=== PATIENT | female | born 1990 | race African-American/Black ===

== ENCOUNTER 2019-06-20 11:56 | Emergency (ER) | payer SELFPAY ==
--- NOTE | 2019-06-20 12:00 | NUR ---
Friend present trying to translate for ER, weight and height not known by pt. Reports via translation no officce visit has had translation for her to know. Estimated these. Pt arrived to available room ED 3 which has no weight bed. Pt arrivd 1156 via [facility]. NKDA. Prior 8 yrs ago pt reports via translation "when I was due on a 28 and delivered on a 16." Pt did have an approx 38 week 3 day last delivery live . This is pt's 2nd delivery. Dr Henning asks patient be prepared for pelvic exam.
[2019-06-20] MEDS: ONDANSETRON 4 MG/2 ML (SDV) Z0FRAN ONE (12:15)
--- NOTE | 2019-06-20 12:15 | NUR ---
Pt reports return of nausea [address] ordered medication. Zofran 4 mg SIVP given per eMAR.
--- NOTE | 2019-06-20 12:22 | NUR ---
Pt had pelvic exam pe Dr Henning. reports cervix is closed. Pt seems to describe intermittant pain low abd and reports discomforts with exam.
--- NOTE | 2019-06-20 12:27 | NUR ---
Dr Henning reports he spoke with Dr Beckman and has accepted patient transfer to [place] [facility] to Labor and Delivery for further exam and monitoring.
--- NOTE | 2019-06-20 12:30 | NUR ---
Call report to Angela PENDLETON at the Nursery ext. as the Labor and Delivery ext. no answer. decorating supervisor Vaishnavi also notified of the patient being sent to [place] via EMS to OB Dept direct admit to L&D. No capability to do monitoring. FHT 146.
--- NOTE | 2019-06-20 12:45 | ED Abdominal Pain ---
General Chief Complaint: DIRECTOR OF PLACEMENT Stated Complaint: pelvic pain, blurred vision Source of Information: Patient, Sales Enablement Specialist History of Present Illness Date Seen by Provider: Jun 20, 2019 Time Seen by Provider: 12:15 Initial Comments Patient is a 28-year-old Chilean-speaking only G2, P1 38 week gestation female arriving by EMS who presents with diffuse suprapubic pain and pelvic cramping. Symptom onset was several hours prior to ED arrival. Patient reports pressure pain-like sensation that is moderate, it waxes and wanes. Patient does not feel the urge to bear down. She reports clear fluid leakage but denies gashing or vaginal bleeding. No dysuria, fever or localized flank pain Patient also reports nausea and blurring of vision and dizziness. Patient denies headache. Patient is mildly hypertensive, 120s /70s. Patient did have an in home social staff worker/installer technician visit this morning who who contacted Dr. Beckman, the patient's DIRECTOR OF PLACEMENT. Dr. Beckman requested that the patient be brought directly to [facility]. EMS was contacted and the patient was brought to the ED. Patient was disrobed and placed in a gown upon entering the emergency department. heart turns performed which confirm a viable fetus with a heart rate in the 140s. Pelvic exam was performed. Cervix was effaced but did not appear to be dilated. There is no bloody show or fluid leakage. Patient did appear to have vaginitis with yeast infection Abdomen was minimally tender. Dr. Beckman human resources professional for OB requested patient be brought to the L&D at [facility] into treat signs of preeclampsia if present. No labs were performed as not to present to the [facility]. EMS was contacted for transfer for presumed labor with possible preeclampsia and will be transferred to the [facility] L&D department. History is obtained via tobacco packing machine operator. Timing/Duration: 1-3 Hours Severity/Quality: Moderate, Cramping Location: Suprapubic Radiation: No Radiation Activities at Onset: Rest Modifying Factors: Worsens With Urinating Associated Symptoms: Back Pain; No Fever/Chills; Nausea/Vomiting Allergies and Home Medications Patient Home Medication List Home Medication List Reviewed: Yes Review of Systems Review of Systems Constitutional: see HPI EENTM: See HPI Respiratory: See HPI Cardiovascular: See HPI Gastrointestinal: See HPI Genitourinary: See HPI Musculoskeletal: see HPI Skin: see HPI Psychiatric/Neurological: See HPI Endocrine: See HPI Past Pklgtjl-Edlqdc-Awqykq Hx Past Med/Social Hx: Reviewed Nursing Past Med/Soc Hx Physical Exam Vital Signs Capillary Refill : Height/Weight/BMI Height: '" Weight: lbs. oz. kg; BMI Method: General Appearance: WD/WN, mild distress (secondary to pain) HEENT: PERRL/EOMI Neck: non-tender, supple Respiratory: chest non-tender, lungs clear, no respiratory distress Cardiovascular: normal peripheral pulses Gastrointestinal: soft, other (gravid abdomen consistent with full-term with low station, mild diffuse pelvic tenderness) Extremities: pedal edema Back: no CVA tenderness Pelvic: other (no bloody show, cervix nondilated) Skin: normal color, warm/dry Focused Exam Sepsis Stage: Ruled Out Progress/Results/Core Measures Results/Orders My Orders Orders - RAMONA SALDANA DO Ondansetron Injection (Zofran Injectio (06/20/19 12:04) Medications Given in ED Current Medications Medications Dose Ordered Sig/Rhea Route Start Time Stop Time Status Last Admin Dose Admin Ondansetron HCl 4 mg STK-MED ONCE .ROUTE 06/20/19 12:04 06/20/19 12:13 DC 06/20/19 12:15 4 MG Departure Communication (Admissions) Patient accepted by Dr. Beckman to [facility] L&D department. Considerations to keep the patient in [place] for delivery were out-weighed given presumed early-stage of labor and concern for preeclampsia and unlikelihood of precipitous delivery on route to [facility] and as requested by the patient's treating OB. Impression Primary Impression: Distress from pain in labor Disposition: 02 XFER SHT-TRM HOSP Condition: Stable RAMONA SALDANA DO Jun 20, 2019 12:45
[2019-06-20] MEDS ORDERED: PREN-37 PO ×2 (13:05)
[2019-06-20 13:20] VITALS: BP 117/72
[2019-06-20] MEDS ORDERED: ONDANSETRON 4 MG/2 ML (SDV) Z0FRAN IVP ONE (20:45)
== END 2019-06-20 13:20 | disposition short-term general hospital (02) ==
LOC: ER FS 12:04
DX: O75.0 Maternal distress during labor and delivery (principal); Z3A.38 38 weeks gestation of pregnancy

== ENCOUNTER 2019-06-20 14:20 | Outpatient (CLI) | payer SELFPAY ==
[2019-06-20 14:20] VITALS: BP 118/76
[~2019-06-20 14:20] MED LIST: PREN-37 PO
--- NOTE | 2019-06-20 14:45 | NUR ---
DR TAYLOR AT BEDSIDE FOR PT EVALUATION. DR TAYLOR WAS ON LD ALREADY AND THIS RN DISCUSSED PT REPORT WITH DR IN PERSON- HE DECIDED TO EVALUATE HER HIMSELF. SVE BY DR TAYLOR AND FHT REVIEWED, PT QUESTIONED ABOUT SITUATION AND SYMPTOMS. WE WILL BOLUS 1 L IV FLUID, DRAW CBC, CMP, URIC ACID, GIVE ZOFRAN. DR TAYLOR ORDERS PT TO TAKE HER MEDICATION FOR N/V AT HOME Q8H AND SEE HIM IN OFFICE ON THURSDAY SCHEDULED. HE PLANS TO SEND PT HOME WITH RX FOR TYLENOL WITH CODEINE FOR PAIN. SVE WAS /-2, OCCASIONAL UC, REACTIVE FHT.
[2019-06-20 14:50] VITALS: BP 112/70
[2019-06-20] MEDS ORDERED: LACTATED RINGERS 1,000 ML IV SCH (15:00)
[2019-06-20] MEDS ORDERED: ONDANSETRON 4 MG/2 ML (SDV) Z0FRAN IVP ONE (15:00)
[2019-06-20 15:20] VITALS: BP 112/67
[2019-06-20 15:46] LABS: BASOPHILS % (AUTO) 0 % (0-10); EOSINOPHILS % (AUTO) 1 % (0-10); HEMATOCRIT 29 % (35-52); HEMOGLOBIN 8.6 G/DL (11.5-16.0); LYMPHOCYTES # (AUTO) 1.6 X 10^3 (1.0-4.0); LYMPHOCYTES % (AUTO) 25 % (12-44); MEAN CORPUSCULAR HEMOGLOBIN 21 PG (25-34); MEAN CORPUSCULAR HGB CONC 30 G/DL (32-36); MEAN CORPUSCULAR VOLUME 71 FL (80-99); MONOCYTES # (AUTO) 0.7 X 10^3 (0.0-1.0); MONOCYTES % (AUTO) 10 % (0-12); NEUTROPHILS % (AUTO) 64 % (42-75); PLATELET COUNT 125 10^3/uL (130-400); RED CELL DISTRIBUTION WIDTH 16.9 % (10.0-14.5); WHITE BLOOD COUNT 6.2 10^3/uL (4.3-11.0)
[2019-06-20 15:48] LABS: ALANINE AMINOTRANSFERASE 12 U/L (0-55); ALKALINE PHOSPHATASE 184 U/L (40-136); BILIRUBIN,TOTAL 0.6 MG/DL (0.1-1.0); BUN/CREATININE RATIO 10; CALCIUM 8.6 MG/DL (8.5-10.1); CARBON DIOXIDE 17 MMOL/L (21-32); CHLORIDE 108 MMOL/L (98-107); CREATININE SERUM 0.61 MG/DL (0.60-1.30); GFR ESTIMATED > 60; POTASSIUM 3.7 MMOL/L (3.6-5.0); SODIUM 135 MMOL/L (135-145); TOTAL PROTEIN 6.4 GM/DL (6.4-8.2); URIC ACID 4.8 MG/DL (2.6-7.2)
[2019-06-20 15:50] VITALS: BP 121/69
[2019-06-20 15:53] LABS: GLUCOSE 54 MG/DL (70-105)
--- NOTE | 2019-06-20 16:20 | NUR ---
THIS RN AT BEDSIDE. DR TAYLOR HAPPENED OT BE ON LD AND STOPPED IN AGAIN TO SEE PT. THIS RN UPDATED DR ON PT REPORT. FHT STRIP REVIEWED BY DR TAYLOR AT THIS TIME. DR TAYLOR OKAYED FHT. LABS REPORTED, VS REPORTED. DR TAYLOR STATES PT MAY GO HOME AT THIS TIME.
--- NOTE | 2019-06-20 16:35 | History & Physical-OB ---
OB - Chief Complaint & HPI Date/Time Date of Admission: June 20, 2019Date of Admission: Date seen by a Provider: Jun 20, 2019 Time Seen by a Provider: 14:00 Chief Complaint/History OB-Reason for Admission/Chief: Nausea and lower pelvic pain at 37 5/7 weeks gestation Hx : 2 Hx Para: 1 Expected Date of Delivery: Jul 06, 2019 Gestational Age in Weeks: 37 Gestational Age in Days: 5 Admission Nurse Assessment Rev: Yes Allergies and Home Medications Allergies Coded Allergies: No Known Drug Allergies (Unverified , 06/20/19) Home Medications Vit/Iron Fumarate/FA 1 Each Tablet, 1 EACH PO DAILY, (Reported) Patient Home Medication List Home Medication List Reviewed: Yes OB - History Hx of Present Care: Yes Ultrasounds: Normal mid trimester US Obstetrical Complications: Hyperemesis Medical Complications: None Information Induced Hypertension: No Maternal Gestational Diabetes: No Hemorrhage: No Obstetrical History Hx : 2 Hx Para: 1 Hx Termination: No Hx Total # of Abortions (Spona: 0 Patient Past Medical History No significant medical history Social History/Family History Recent Infectious Disease Expo: No Alcohol Use: Denies Use Recreational Drug Use: No Smoking Cessation: Never smoker OB - Admission Exam Physical Exam HEENT: NCAT Heart: Rhythm Normal Lungs: Clear Abdomen: Gravid Extremities: Normal Cervical Dilatation: 1cm Effacement: 25% Station: Ballotable Membranes: Intact Accelerations: Accelerations Present Short Term Variability: Present Plate Mounter Variability: Average (6-25) Contractions on Admission: >10 Minutes Apart Intensity: Mild [place] Scoring Tool (Modified) Dilation (cm): 1-2cm (1) Effacement (%): 0-30% (0) Descent/Station: -3 (0) Cervix Consistency: Firm (0) Cervix Position: Posterior (0) Add 1 point for: Each previous vaginal delivery (1) Labs Laboratory Tests Test 06/20/19 15:19 Range/Units White Blood Count 6.2 4.3-11.0 10^3/uL Red Blood Count 4.03 L 4.35-5.85 10^6/uL Hemoglobin 8.6 L 11.5-16.0 G/DL Hematocrit 29 L 35-52 % Mean Corpuscular Volume 71 L 80-99 FL Mean Corpuscular Hemoglobin 21 L 25-34 PG Mean Corpuscular Hemoglobin Concent 30 L 32-36 G/DL Red Cell Distribution Width 16.9 H 10.0-14.5 % Platelet Count 125 L 130-400 10^3/uL Mean Platelet Volume 11.0 H 7.4-10.4 FL Neutrophils (%) (Auto) 64 42-75 % Lymphocytes (%) (Auto) 25 12-44 % Monocytes (%) (Auto) 10 0-12 % Eosinophils (%) (Auto) 1 0-10 % Basophils (%) (Auto) 0 0-10 % Neutrophils # (Auto) 4.0 1.8-7.8 X 10^3 Lymphocytes # (Auto) 1.6 1.0-4.0 X 10^3 Monocytes # (Auto) 0.7 0.0-1.0 X 10^3 Eosinophils # (Auto) 0.0 0.0-0.3 10^3/uL Basophils # (Auto) 0.0 0.0-0.1 10^3/uL Sodium Level 135 135-145 MMOL/L Potassium Level 3.7 3.6-5.0 MMOL/L Chloride Level 108 H 98-107 MMOL/L Carbon Dioxide Level 17 L 21-32 MMOL/L Anion Gap 10 5-14 MMOL/L Blood Urea Nitrogen 6 L 7-18 MG/DL Creatinine 0.61 0.60-1.30 MG/DL Estimat Glomerular Filtration Rate > 60 BUN/Creatinine Ratio 10 Glucose Level 54 *L 70-105 MG/DL Uric Acid 4.8 2.6-7.2 MG/DL Calcium Level 8.6 8.5-10.1 MG/DL Corrected Calcium 9.4 8.5-10.1 MG/DL Total Bilirubin 0.6 0.1-1.0 MG/DL Aspartate Amino Transf (AST/SGOT) 23 5-34 U/L Alanine Aminotransferase (ALT/SGPT) 12 0-55 U/L Alkaline Phosphatase 184 H 40-136 U/L Total Protein 6.4 6.4-8.2 GM/DL Albumin 3.0 L 3.2-4.5 GM/DL OB - Assessment/Plan/Diagnosis Assessment Assessment: other (Intrauterine at 37 5/7 weeks 2. Nausea 3. Pelvic Pain) Admission Dx Intrauterine at 37 5/7 weeks 2. Nausea 3. Pelvic Pain Admission Status: Observation Plan Plan: Other (IV fluids and Zofran. External Monitoring with Observation. Discharge to home) Discharge Diagnosis Diagnosis: Intrauterine at 37 5/7 weeks 2. Nausea 3. Pelvic Pain DELROY TAYLOR DO Jun 20, 2019 16:35
[2019-06-20 16:59] LABS: BAND NEUTROPHILS 1 %; BASOPHILS % (MANUAL) 0 %; EOSINOPHILS % (MANUAL) 2 %; LYMPHOCYTES % (MANUAL) 26 %; MONOCYTES % (MANUAL) 8 %
[2019-06-20 17:00] LABS: ANISOCYTOSIS SLIGHT; HYPOCHROMASIA SLIGHT; MICROCYTOSIS SLIGHT; NUCLEATED RED BLOOD CELLS 2
[2019-06-20 17:02] LABS: NEUTROPHILS % (MANUAL) 63 %
== END 2019-06-20 16:30 | disposition home or self-care (01) ==
LOC: WSo 14:20 → LDRP 14:20 → WSo 16:30
PROVIDERS: ATTEND Obstetrics & Gynecology
DX: O26.893 Other specified pregnancy related conditions, third trimester (principal); Z3A.37 37 weeks gestation of pregnancy; R11.0 Nausea; R10.2 Pelvic and perineal pain
CPT/HCPCS: 36415; 80053; 84550; 85007; 85027; 96361; 96374; 99213

== ENCOUNTER 2019-07-04 06:00 | Inpatient (IN) | payer OTHER ==
[~2019-07-04] VITALS: Ht 161 cm; Wt 70.9 kg
[2019-07-04] VITALS (72 sets, daily range): BP systolic 109–153; BP diastolic 57–98
--- NOTE | 2019-07-04 06:10 | NUR ---
ANKIT RANDALL presented to unit via AMBULATION from ED, accompanied by ADULT FEMALE, for INDUCTION. ANKIT RANDALL weighed, gowned, voided, and to bed. EFHM and TOCO applied, VS taken. ANKIT RANDALL oriented to bed controls, call light, TV, heat, and A/C controls. Assessments to follow per Mirian cat.
[2019-07-04] MEDS ORDERED: D5 LR IV SOLUTION 1,000 ML IV ONE (06:11)
[2019-07-04] MEDS ORDERED: AMPICILLIN FOR IV USE 2,000 MG VIAL ONE (06:11)
[2019-07-04] MEDS ORDERED: WATER (STERILE) FOR INJECTION 0 ML ONE (06:14)
[2019-07-04] MEDS ORDERED: WATER (STERILE) FOR INJECTION 20 ML ONE (06:15)
[2019-07-04] MEDS ORDERED: AMPICILLIN FOR IV USE 2,000 MG in WATER (STERILE) FOR INJECTION 14.8 ML IV SCH (06:18)
[2019-07-04] MEDS ORDERED: OXYTOCIN/NORMAL SALINE 500 ML IV SCH ×2 (06:18→18:01)
[2019-07-04] MEDS ORDERED: MINERAL OIL CONCENTRATE 99.9% 15 ML UDC TOP PRN (06:30)
[2019-07-04] MEDS: D5 LR IV SOLUTION 1,000 ML IV SCH ×2 (06:37→13:25)
[2019-07-04 07:09] LABS: BASOPHILS % (AUTO) 0 % (0-10); EOSINOPHILS # (AUTO) 0.1 10^3/uL (0.0-0.3); EOSINOPHILS % (AUTO) 1 % (0-10); HEMATOCRIT 31 % (35-52); HEMOGLOBIN 9.5 G/DL (11.5-16.0); LYMPHOCYTES # (AUTO) 1.8 X 10^3 (1.0-4.0); LYMPHOCYTES % (AUTO) 27 % (12-44); MEAN CORPUSCULAR HEMOGLOBIN 21 PG (25-34); MEAN CORPUSCULAR HGB CONC 30 G/DL (32-36); MEAN CORPUSCULAR VOLUME 69 FL (80-99); MEAN PLATELET VOLUME 10.7 FL (7.4-10.4); MONOCYTES # (AUTO) 0.6 X 10^3 (0.0-1.0); MONOCYTES % (AUTO) 9 % (0-12); NEUTROPHILS # (AUTO) 4.2 X 10^3 (1.8-7.8); NEUTROPHILS % (AUTO) 63 % (42-75); PLATELET COUNT 165 10^3/uL (130-400); RED CELL DISTRIBUTION WIDTH 17.6 % (10.0-14.5); WHITE BLOOD COUNT 6.6 10^3/uL (4.3-11.0)
--- NOTE | 2019-07-04 08:12 | History & Physical-OB ---
OB - Chief Complaint & HPI Date/Time Date of Admission: Date of Admission: Jul 04, 2019 at 06:02 Date seen by a Provider: Jul 04, 2019 Time Seen by a Provider: 08:00 Chief Complaint/History OB-Reason for Admission/Chief: Induction of Labor Hx : 2 Hx Para: 1 Admission Nurse Assessment Rev: Yes Allergies and Home Medications Allergies Coded Allergies: No Known Drug Allergies (Unverified , 06/20/19) Home Medications Vit/Iron Fumarate/FA 1 Each Tablet, 1 EACH PO DAILY, (Reported) Patient Home Medication List Home Medication List Reviewed: Yes OB - History Hx of Present Care: Yes Ultrasounds: Normal mid trimester US Obstetrical Complications: None Medical Complications: None Information Induced Hypertension: No Maternal Gestational Diabetes: No Hemorrhage: No Obstetrical History Hx : 2 Hx Para: 1 Hx # Term Pregnancies: 0 Hx # Pregnancies: 0 Number of Living Children: 1 Hx Termination: No Patient Past Medical History No significant medical history OB - Admission Exam Physical Exam Vitals: Vital Signs 07/04/19 07:05 Temp 37.0 Pulse 80 Resp 16 B/P (MAP) 122/72 (89) O2 Delivery Room Air HEENT: NCAT Heart: Rhythm Normal Lungs: Clear Abdomen: Gravid Extremities: Normal Reflexes: Normal Cervical Dilatation: 3cm Effacement: 50% Station: Ballotable Membranes: Intact Heart Rate: 130's Accelerations: Accelerations Present Decelerations: No Decelerations Short Term Variability: Present Group Home Variability: Average (6-25) Contractions on Admission: None [place] Scoring Tool (Modified) Dilation (cm): 3-4cm (2) Effacement (%): 31-51% (1) Descent/Station: -3 (0) Cervix Consistency: Medium(1) Cervix Position: Posterior (0) Add 1 point for: Each previous vaginal delivery (1) Labs Laboratory Tests Test 07/04/19 06:37 Range/Units White Blood Count 6.6 4.3-11.0 10^3/uL Red Blood Count 4.57 4.35-5.85 10^6/uL Hemoglobin 9.5 L 11.5-16.0 G/DL Hematocrit 31 L 35-52 % Mean Corpuscular Volume 69 L 80-99 FL Mean Corpuscular Hemoglobin 21 L 25-34 PG Mean Corpuscular Hemoglobin Concent 30 L 32-36 G/DL Red Cell Distribution Width 17.6 H 10.0-14.5 % Platelet Count 165 130-400 10^3/uL Mean Platelet Volume 10.7 H 7.4-10.4 FL Neutrophils (%) (Auto) 63 42-75 % Lymphocytes (%) (Auto) 27 12-44 % Monocytes (%) (Auto) 9 0-12 % Eosinophils (%) (Auto) 1 0-10 % Basophils (%) (Auto) 0 0-10 % Neutrophils # (Auto) 4.2 1.8-7.8 X 10^3 Lymphocytes # (Auto) 1.8 1.0-4.0 X 10^3 Monocytes # (Auto) 0.6 0.0-1.0 X 10^3 Eosinophils # (Auto) 0.1 0.0-0.3 10^3/uL Basophils # (Auto) 0.0 0.0-0.1 10^3/uL OB - Assessment/Plan/Diagnosis Assessment Assessment: induction of labor Admission Dx Intrauterine at 39 weeks Admission Status: Inpatient Order (span 2 midnights) Reason for Inpatient Admission: Pitocin Induction of Labor Plan Plan: Induction Induction Method: per Pitocin Protocol DELROY TAYLOR DO Jul 04, 2019 08:12
[2019-07-04] MEDS ORDERED: SUFENTA 0.6MCG/ML BUPIVA 0.125 100 ML ONE (08:22)
--- NOTE | 2019-07-04 09:13 | NUR ---
Sheryl Rothman CRNA here for epidural placement. Procedure explained, consent reviewed and signed by anesthesia. Questions answered to patient's satisfaction. Time out taken to verify correct patient/procedure. Patient up to side of bed, assisted into sitting position. Betadine prep done x3 and sterile drape applied. Local done, see anesthesia record. Test dose given, see anesthesia record for drug and dosage. Epidural catheter secured in place. Epidural placement complete. Assisted back into bed, monitors adjusted. Epidural dosed, see anesthesia record. Epidural of Sufenta/Bupvicaine @ 12cc/hr stated per pump. Patient tolerated procedure well.
[2019-07-04] MEDS ORDERED: fentaNYL INJECTION 100 MCG/2 ML AMP ONE (09:35)
[2019-07-04] MEDS: EPIDURAL (SUFENTA 0.6MCG/ML BUPIVA 0.125%) 100 ML BAG EPI PRN ×2 (09:38→16:48)
[2019-07-04] MEDS: AMPICILLIN FOR IV USE 1,000 MG in WATER (STERILE) FOR INJECTION 7.4 ML IV SCH ×2 (10:55→14:43)
[2019-07-04 11:18] LABS: BILIRUBIN,URINE NEGATIVE (NEGATIVE); CLARITY,URINE CLEAR; COLOR,URINE YELLOW; GLUCOSE, URINE (UA) NEGATIVE (NEGATIVE); KETONES,URINE NEGATIVE (NEGATIVE); LEUKOCYTE ESTERASE ,URINE 1+ (NEGATIVE); NITRITE,URINE NEGATIVE (NEGATIVE); PH,URINE 7 (5-9); PROTEIN,URINE 2+ (NEGATIVE); UROBILINOGEN,URINE NORMAL (NORMAL)
[2019-07-04 11:29] LABS: BACTERIA,URINE MODERATE /HPF; WBC,URINE 0-2 /HPF
[2019-07-04] MEDS ORDERED: ONDANSETRON 4 MG/2 ML (SDV) Z0FRAN IV PRN (11:30)
[2019-07-04] MEDS ORDERED: diphenhydrAMINE 50 MG/ML INJ (BENADRYL) IV PRN (11:30)
[2019-07-04] MEDS ORDERED: LACTATED RINGERS 1,000 ML IV SCH (11:30)
[2019-07-04] MEDS ORDERED: NALOXONE 0.4 MG/ML 1 ML (NARCAN) VIAL IV PRN ×2 (11:30)
[2019-07-04] MEDS ORDERED: METOCLOPRAMIDE INJ 10 MG/2 ML (REGLAN) IV PRN (11:30)
[2019-07-04] MEDS ORDERED: CATHETER FLUSH 10 ML SYR IV SCH ×2 (14:00→22:00)
[2019-07-04] MEDS ORDERED: LIDOCAINE 1% INJ 20 ML 20 ML VIAL ONE (16:21)
--- NOTE | 2019-07-04 18:01 | OB Labor & Delivery Record ---
Vag Delivery Note Vag Delivery Note Date of Delivery: 07/04/19 Preoperative Diagnosis: Katherin Méndez is a (28 /Para 2 / 1, Gestational Age (wks)39 4/7 Postoperative Diagnosis: Same Surgeon: DELROY TAYLOR Vice Chair: [None] Anesthesia: [Epidural] Delivery Type: [Normal Spontaneous Vaginal Delivery with Second Degree Perineal Laceration and Repair] Findings: [] Viable [Female] , apgars [], weight [6 pounds, 6 ounces] Lacerations: Second degree perineal laceration with repair Intact placenta with 3 vessel cord. No nuchal cord, body cord or shoulder dystocia Cytotec 800 mcg placed for hemorrhage prophylaxis Estimated Blood Loss: [300] ml Complications: None Condition: Stable Description of Procedure: The patient is a 28 year old female who presented [for Pitocin Induction of Labor]. She was admitted and informed consent was obtained. She progressed to complete dilatation and began to push. She was then set up for delivery. The 's head was delivered atraumatically in the [SD] position. The shoulders and remainder of the infant's body were then delivered without difficulty. Upon delivery, the head was held below the level of the perineum and the mouth and nares were bulb suctioned. The cord was doubly clamped and cut and the was handed off to the pediatric staff. Cord blood was obtained. An intact placenta with 3-vessel cord delivered via Ghulam and there was found to be minimal bleeding.~ Vigorous fundal massage was performed and the fundus was found to be firm. IV oxytocin was given. Examination of the vagina and perineum revealed a [second degree perineal] laceration repaired in the usual fashion with 3-0 vicryl suture. Following the repair, sponge, instrument and needle counts were correct. Mom and baby were both in stable condition in the labor suite. Vitals - Labs Vital Signs - I&O Vital Signs Date Time Temp Pulse Resp B/P (MAP) Pulse Ox O2 Delivery O2 Flow Rate FiO2 07/04/19 14:55 81 18 112/65 (81) Room Air 07/04/19 14:40 92 18 122/74 (90) Room Air 07/04/19 14:25 78 18 123/77 (92) Room Air 07/04/19 14:15 61 18 125/75 (92) Room Air 07/04/19 13:55 37.0 84 18 118/75 (89) Room Air 07/04/19 13:50 76 18 118/75 (89) Room Air 07/04/19 13:45 64 18 119/70 (86) Room Air 07/04/19 13:40 64 18 118/75 (89) Room Air 07/04/19 13:35 63 18 139/84 (102) Room Air 07/04/19 13:30 68 18 138/63 (88) Room Air 07/04/19 13:25 61 18 128/72 (90) Room Air 07/04/19 13:20 63 18 135/93 (107) Room Air 07/04/19 13:15 60 18 128/88 (101) Room Air 07/04/19 13:10 104 18 127/75 (92) Room Air 07/04/19 13:05 36.8 62 18 130/63 (85) Room Air 07/04/19 12:50 70 18 137/85 (102) Room Air 07/04/19 12:35 64 18 137/83 (101) Room Air 07/04/19 12:20 73 18 143/98 (113) Room Air 07/04/19 12:05 66 18 129/77 (94) Room Air 07/04/19 11:50 66 18 127/83 (98) Room Air 07/04/19 11:35 65 18 127/76 (93) 100 Room Air 07/04/19 11:20 71 18 126/77 (93) 99 Room Air 07/04/19 11:05 66 18 124/76 (92) 99 Room Air 07/04/19 10:47 36.3 67 18 117/76 (90) 100 Room Air 07/04/19 10:42 95 18 109/73 (85) 100 Room Air 07/04/19 10:38 56 18 126/64 (84) Room Air 07/04/19 10:31 57 18 129/77 (94) 99 Room Air 07/04/19 10:26 53 18 126/75 (92) 99 Room Air 07/04/19 10:21 60 18 124/75 (91) 100 Room Air 07/04/19 10:16 57 18 120/75 (90) 100 Room Air 07/04/19 10:11 56 18 125/75 (92) 100 Room Air 07/04/19 10:06 75 18 116/66 (83) 100 Room Air 07/04/19 10:03 64 18 124/74 (91) Room Air 07/04/19 10:00 81 18 119/74 (89) 100 Room Air 07/04/19 09:57 71 18 123/70 (87) 100 Room Air 07/04/19 09:54 61 18 123/72 (89) Room Air 07/04/19 09:50 68 18 118/70 (86) 100 Room Air 07/04/19 09:48 88 18 118/73 (88) Room Air 07/04/19 09:45 63 18 133/75 (94) 100 Room Air 07/04/19 09:40 36.8 75 18 124/69 (87) 100 Room Air 07/04/19 09:35 76 18 129/79 (96) 100 Room Air 07/04/19 09:20 63 18 146/79 (101) 99 Room Air 07/04/19 09:05 72 18 113/67 (82) Room Air 07/04/19 08:35 54 18 138/85 (102) Room Air 07/04/19 08:20 56 18 145/69 (94) Room Air 07/04/19 08:05 56 18 128/81 (97) Room Air 07/04/19 07:35 36.9 80 18 147/75 (99) Room Air 07/04/19 07:20 64 18 141/83 (102) Room Air 07/04/19 07:05 37.0 80 16 122/72 (89) Room Air Labs Laboratory Tests 07/04/19 06:20: Urine Color YELLOW, Urine Clarity CLEAR, Urine pH 7, Urine Specific [place] 1.010L, Urine Protein 2+H, Urine Glucose (UA) NEGATIVE, Urine Ketones NEGATIVE, Urine Nitrite NEGATIVE, Urine Bilirubin NEGATIVE, Urine Urobilinogen NORMAL, Urine Leukocyte Esterase 1+H, Urine RBC (Auto) NEGATIVE, Urine RBC NONE, Urine WBC 0-2, Urine Squamous Epithelial Cells 5-10, Urine Crystals NONE, Urine Bacte anaya MODERATEH, Urine Casts NONE, Urine Mucus NEGATIVE, Urine Culture Indicated NO 07/04/19 06:37: White Blood Count 6.6, Red Blood Count 4.57, Hemoglobin 9.5L, Hematocrit 31L, Mean Corpuscular Volume 69L, Mean Corpuscular Hemoglobin 21L, Mean Corpuscular Hemoglobin Concent 30L, Red Cell Distribution Width 17.6H, Platelet Count 165, Mean Platelet Volume 10.7H, Neutrophils (%) (Auto) 63, Lymphocytes (%) (Auto) 27, Monocytes (%) (Auto) 9, Eosinophils (%) (Auto) 1, Basophils (%) (Auto) 0, Neutrophils # (Auto) 4.2, Lymphocytes # (Auto) 1.8, Monocytes # (Auto) 0.6, Eosinophils # (Auto) 0.1, Basophils # (Auto) 0.0 DELROY TAYLOR DO Jul 04, 2019 18:00
[2019-07-04] MEDS ORDERED: TETANUS,DIPTH,PERTUSS P/F (BOOSTRIX) 0.5 ML VIAL IM ONE (18:15)
[2019-07-04] MEDS ORDERED: MEASLES,MUMPS,RUBELLA 1 EA INJ SQ ONE (18:15)
[2019-07-04] MEDS ORDERED: WITCH HAZEL(TUCKS) 40 EA JAR TOP PRN (18:15)
[2019-07-04] MEDS ORDERED: BENZOCAINE/MENTHOL (DERMOPLAST) 56 ML CAN TP PRN (18:15)
--- NOTE | 2019-07-04 19:20 | NUR ---
Pt assisted onto bedpan. Successfully voided at time. Pericare performed per this RN. Pt denies any concerns.
[2019-07-04] MEDS: IBUPROFEN 800 MG (MOTRIN) TAB PO SCH (19:29)
--- NOTE | 2019-07-04 19:30 | NUR ---
Pt . Denies needing any assistance.
--- NOTE | 2019-07-04 21:00 | NUR ---
Pt requesting to bottle feed. Bottles given. Demonstrated preparation. Pt denies needing further assistance at time.
--- NOTE | 2019-07-04 21:35 | NUR ---
Pt states is still unable to move right leg on own. Bedpan given again per pt's request to use bathroom at time. Successfully voided. Pericare per this RN. Pt requesting to sleep. Fan turned on, lights dimmed. Assisted pt with positioning in bed. Pt denies needing anything further at time.
--- NOTE | 2019-07-04 22:10 | NUR ---
Pt sleeping in bed. IV saline locked at time. No concerns voiced.
--- NOTE | 2019-07-04 23:30 | NUR ---
Pt states can move legs. Assisted up to bathroom in labor room. Successfully voided at time. Discussed and demonstrated pericare. Pt assisted into new underwear. New vpad in place. Pt assisted into new gown, then into wheelchair. Pt to room at time. Oriented to new room. Ice pack given for swelling and pain. Pt denies needing anything further at time. Encouraged to call if needing anything.
[2019-07-04] MEDS: ACETAMINOPHEN 500 MG TAB (TYLENOL) PO SCH (23:41)
--- NOTE | 2019-07-05 02:30 | NUR ---
Pt resting in bed. Denies any concerns at time. Infant to nursery for bath.
[2019-07-05 03:30] VITALS: BP 124/77
--- NOTE | 2019-07-05 03:30 | NUR ---
Infant back to patient's room at time. VS taken. Warm blanket given for patient's back discomfort. Fresh water given. Pt denies needing anything further at time.
[2019-07-05] MEDS: IBUPROFEN 800 MG (MOTRIN) TAB PO SCH ×2 (03:41→12:30)
[2019-07-05 05:50] LABS: BASOPHILS % (AUTO) 0 % (0-10); EOSINOPHILS # (AUTO) 0.1 10^3/uL (0.0-0.3); EOSINOPHILS % (AUTO) 1 % (0-10); HEMATOCRIT 26 % (35-52); HEMOGLOBIN 7.8 G/DL (11.5-16.0); LYMPHOCYTES # (AUTO) 1.9 X 10^3 (1.0-4.0); LYMPHOCYTES % (AUTO) 16 % (12-44); MEAN CORPUSCULAR HEMOGLOBIN 21 PG (25-34); MEAN CORPUSCULAR HGB CONC 30 G/DL (32-36); MEAN CORPUSCULAR VOLUME 69 FL (80-99); MEAN PLATELET VOLUME 10.8 FL (7.4-10.4); MONOCYTES # (AUTO) 1.3 X 10^3 (0.0-1.0); MONOCYTES % (AUTO) 10 % (0-12); NEUTROPHILS % (AUTO) 73 % (42-75); PLATELET COUNT 132 10^3/uL (130-400); RED CELL DISTRIBUTION WIDTH 17.6 % (10.0-14.5); WHITE BLOOD COUNT 12.3 10^3/uL (4.3-11.0)
--- NOTE | 2019-07-05 05:50 | NUR ---
Pt ambulating in room, getting ready to lay down. Warm blanket given per pt request. Pt denies needing anything further.
[2019-07-05] MEDS: DOCUSATE SODIUM 100 MG (COLACE) CAP PO SCH ×2 (05:57→08:32)
--- NOTE | 2019-07-05 06:34 | Discharge Summary ---
Diagnosis/Chief Complaint Date of Admission Jul 04, 2019 at 06:02 Date of Discharge July 05, 2019 Discharge Date: Jul 05, 2019 Discharge Time: 18:00 Admission Diagnosis Admission Diagnosis Intrauterine at 39 4/7 weeks Discharge Diagnosis Intrauterine at 39 4/7 weeks--delivered Reason Hospital Visit Pitocin Induction of Labor Discharge Summary Hospital Course Was the Problem List Reviewed?: Yes Hospital Course Ms. Pearce was induced with Pitocin. I artificially rupture her membranes. She received an Epidural for antepartum pain management. She progressed to complete, delivered a healthy, viable female . The remainder of her hospitalization was unremarkable. Her vital signs remained stable. I will discharge her to home with instructions, prescriptions and a follow up appointment. Labs Laboratory Tests 07/04/19 06:20: Urine Specific [place] 1.010L, Urine Protein 2+H, Urine Leukocyte Esterase 1+H, Urine Bacteria MODERATEH 07/04/19 06:37: Hemoglobin 9.5L, Hematocrit 31L, Mean Corpuscular Volume 69L, Mean Corpuscular Hemoglobin 21L, Mean Corpuscular Hemoglobin Concent 30L, Red Cell Distribution Width 17.6H, Mean Platelet Volume 10.7H 07/05/19 05:35: Hemoglobin 7.8L, Hematocrit 26L, Mean Corpuscular Volume 69L, Mean Corpuscular Hemoglobin 21L, Mean Corpuscular Hemoglobin Concent 30L, Red Cell Distribution Width 17.6H, Mean Platelet Volume 10.8H, White Blood Count 12.3H, Red Blood Count 3.79L, Neutrophils # (Auto) 9.0H, Monocytes # (Auto) 1.3H Procedures None. Discharge Physical Examination Allergies: Coded Allergies: No Known Drug Allergies (Unverified , 06/20/19) Vitals & I&Os Vital Signs Date Time Temp Pulse Resp B/P (MAP) Pulse Ox O2 Delivery O2 Flow Rate FiO2 07/05/19 03:30 37.1 82 18 124/77 (93) 99 07/04/19 18:54 Room Air General Appearance: Alert, Oriented X3, Cooperative HEENT: Atraumatic Respiratory: Clear to Auscultation, Normal Air Movement Cardiovascular: Regular Rate, No Murmurs Abdominal: Normal Bowel Sounds Extremities: No Clubbing, No Cyanosis Skin: No Rashes Neuro: Normal Gait, Normal Speech Psych/Mental Status: Mental Status NL Discharge Home Medications Reviewed and agree with Discharge Medication list on patient's Discharge Instruction sheet Instructions to Patient/Family Please see electronic discharge instructions given to patient. Clinical Quality Measures DVT/VTE Risk/Contraindication: Risk Factor Score Per Nursin RFS Level Per Nursing on Admit: 1=Low/No VTE PPX DELROY TAYLOR DO Jul 05, 2019 06:34
[2019-07-05] MEDS ORDERED: OXC5T PO (06:38)
[2019-07-05] MEDS ORDERED: DOCU100C37 PO (06:38)
[2019-07-05] MEDS ORDERED: IBUP-1780 PO (06:38)
[2019-07-05] MEDS ORDERED: ACET-77 PO (06:38)
[2019-07-05] MEDS ORDERED: PRENATAL VITAMIN 1 EA TAB PO SCH (07:00)
--- NOTE | 2019-07-05 07:38 | Anesthesia-Regional Post-Op ---
Regional Patient Condition Mental Status: Alert, Oriented x3 Circulation: Same as Pre-Op Headache: Absent Sensation: Full Recovery Motor Block: Absent Post Op Complications Complications None Follow Up Care/Instructions Patient Instructions None needed. Anesthesia/Patient Condition Patient is doing well, no complaints, stable vital signs, no apparent adverse anesthesia problems. No complications reported per nursing. CORIE WHALEN CRNA Jul 05, 2019 07:38
[2019-07-05 08:30] VITALS: BP 131/60
--- NOTE | 2019-07-05 08:30 | NUR ---
REPORTEDLY DR. TAYLOR WAS IN TO SEE PT AND DISMISS. A.M. ASSESSMENT COMPLETED. VSS. [employer] TRANSLATE UTILIZED. ORDERED FOOD FOR PT.
[2019-07-05] MEDS: ACETAMINOPHEN 500 MG TAB (TYLENOL) PO SCH ×2 (08:33→16:20)
--- NOTE | 2019-07-05 10:30 | NUR ---
SHOWERED WITHOUT PROBLEMS. OT NURSERY FOR EXAM.
[2019-07-05 12:30] VITALS: BP 123/64
--- NOTE | 2019-07-05 12:30 | NUR ---
VSS. CARING FOR INFANT. OFFERED TO ORDER FOOD FOR PT BUT DECLINES AT THIS TIME.
--- NOTE | 2019-07-05 13:30 | NUR ---
TO ROOM TO ASSIST NEEDED WITH FEEDING. WARM BLANKET TO BACK R/T C/O BACK HURTING AT EPIDURAL SITE. SITE CLEAR.
--- NOTE | 2019-07-05 14:15 | NUR ---
OXYIR 5 MG P.O. FOR C/O BACK PAIN. HAVE PLACED WARM BLANKETS TO LOW BACK PRN TODAY. PT S/O BACK HURTING JUST BELOW EPIDURAL SITE.
[2019-07-05 16:00] VITALS: BP 131/79
--- NOTE | 2019-07-05 16:00 | NUR ---
VSS. STATES FRIENDS WERE SUPPOSED TO COME AT 1600 TO [employer] [facility]S FOR HER.
--- NOTE | 2019-07-05 18:00 | NUR ---
FRIENDS HERE. RXS TAKEN TO [facility].
[2019-07-05] MEDS ORDERED: TETANUS,DIPTH,PERTUSS P/F (BOOSTRIX) 0.5 ML VIAL IM ONE (19:08)
--- NOTE | 2019-07-05 19:11 | NUR ---
TDAP GIVEN IM IN LEFT DELTOID. SITE CLEAR.
--- NOTE | 2019-07-05 19:45 | NUR ---
DISCHARGE INSTRUCTIONS REVIEWED WITH COPY TO PT. RXS WERE FILLED JUST NOW. STATES UNDERSTANDING OF ALL INSTRUCTIONS AND NEED TO F/U SCHEDULED AND NEEDED. 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 COPY OF [facility] DELIVERY INSTRUCTIONS ALSO GIVEN.
[2019-07-05 19:50] VITALS: BP 131/79
--- NOTE | 2019-07-05 19:50 | NUR ---
DISMISSED FROM [facility] IN STABLE CONDITION. PT WILL REMAIN IN ROOM A ROOMING IN [facility] R/T NEEDING TO STAY IN HOSPITAL UNTIL TOMORROW.
== END 2019-07-05 19:50 | disposition home or self-care (01) | DRG 807 ==
LOC: LDRP 06:02
PROVIDERS: ADMIT Obstetrics & Gynecology; ATTEND Obstetrics & Gynecology
PROC: 10E0XZZ Delivery of Products of Conception, External Approach (ICD-10-PCS; principal; 2019-07-04)
PROC: 0KQM0ZZ Repair Perineum Muscle, Open Approach (ICD-10-PCS; 2019-07-04)
PROC: 3E033VJ Introduction of Other Hormone into Peripheral Vein, Percutaneous Approach (ICD-10-PCS; 2019-07-04)
DX: O99.824 Streptococcus B carrier state complicating childbirth (principal); O70.1 Second degree perineal laceration during delivery; Z3A.39 39 weeks gestation of pregnancy; Z37.0 Single live birth; Z23 Encounter for immunization
CPT/HCPCS: 36415; 81000; 85025; 86850; 86900; 86901; 90715